=== PATIENT | male | born 1990 | race Caucasian/White ===

== ENCOUNTER 2018-11-20 19:51 | Emergency (ER) | payer MEDICAID ==
[~2018-11-20] VITALS: Ht 182.9 cm; Wt 117.9 kg
[2018-11-20 20:01] VITALS: BP_SYST 156
[2018-11-20 22:30] VITALS: BP_SYST 149
== END 2018-11-20 22:30 | disposition home or self-care (01) ==
LOC: SED 19:51
DX: S61.012A Laceration without foreign body of left thumb without damage to nail, initial encounter (principal); R03.0 Elevated blood-pressure reading, without diagnosis of hypertension; W26.8XXA Contact with other sharp object(s), not elsewhere classified, initial encounter; Y93.89 Activity, other specified; Y92.89 Other specified places as the place of occurrence of the external cause; Y99.8 Other external cause status
CPT/HCPCS: 99283

== ENCOUNTER 2018-12-17 20:55 | Emergency (ER) | payer MEDICAID ==
[~2018-12-17] VITALS: Ht 182.9 cm; Wt 117.9 kg
[2018-12-17 21:00] VITALS: BP_SYST 149
--- NOTE | 2018-12-17 21:00 | NUR ---
Patient to ER bed 7 for evaluation.
--- NOTE | 2018-12-17 21:00 | NUR ---
Patient to ER via triage for evaluation of laceration of left elbow, after he jumped off a pier earlier today. Patient is awake, alert and oriented in no acute distress, vital signs stable, respirations even and unlabored, skin warm and dry to touch. Patient reportedly closed his wound with crazy glue prior to arrival. No active bleeding noted. Patient able to ambulate to bed 7 with slow, steady gait with family at his side. Awaiting evaluation by ER MD, will continue to observe and assess.
--- NOTE | 2018-12-17 22:00 | NUR ---
Patient resting quietly in no acute distress, awaiting evaluation by ER MD, will continue to observe and assess.
--- NOTE | 2018-12-17 22:10 | NUR ---
ER at bedside examining patient.
[2018-12-17] MEDS ORDERED: DIPH-TET-PERTUS Vaccine 0.5 ML VIAL (ADACEL) I.M. ONE (22:30)
[2018-12-17 23:22] VITALS: BP_SYST 141
--- NOTE | 2018-12-17 23:22 | NUR ---
Patient given written and verbal discharge instructions and verbalizes understanding. ER MD discussed with patient the results and treatment provided. Patient in stable condition. ID arm band removed. Rx of Keflex given. Patient educated on pain management and to follow up with PMD. Pain Scale 0. Opportunity for questions provided and answered. Medication side effect fact sheet provided.
== END 2018-12-17 23:22 | disposition home or self-care (01) ==
LOC: SED 20:55
DX: S51.812A Laceration without foreign body of left forearm, initial encounter (principal); X58.XXXA Exposure to other specified factors, initial encounter; Y93.39 Activity, other involving climbing, rappelling and jumping off; Y92.89 Other specified places as the place of occurrence of the external cause; Y99.8 Other external cause status
CPT/HCPCS: 73090; 90715; 99283

== ENCOUNTER 2019-01-01 10:02 | Emergency (ER) | payer MEDICAID ==
[~2019-01-01] VITALS: Ht 182.9 cm; Wt 122.5 kg
--- NOTE | 2019-01-01 10:05 | NUR ---
Patient to ER bed 4 to gown for evaluation. Side rails up. Report given to Fam LEWIS.
[2019-01-01 10:06] VITALS: BP_SYST 143
--- NOTE | 2019-01-01 10:10 | NUR ---
PT complained that he has been coughing for the last 2 days and wanted to make sure he was doing okay. PT O2 saturated at 98% RA. PT is not presenting any signs of acute distress.
--- NOTE | 2019-01-01 10:15 | NUR ---
ER at bedside examining patient.
[2019-01-01] MEDS ORDERED: ALBUTEROL SULFATE 0.083% 2.5 MG/3 ML VIAL.NEB IH ONE (10:30)
[2019-01-01] MEDS ORDERED: methylPREDNISolone SOD SUCC/PF 62.5 MG/ML VIAL IVP ONE (10:30)
[2019-01-01] MEDS ORDERED: IPRATROPIUM BROM 0.5 MG/2.5 ML VIAL.NEB (ATROVENT) IH ONE (10:30)
[2019-01-01] MEDS ORDERED: methylPREDNISolone SOD SUCC/PF 62.5 MG/ML VIAL IM ONE (11:15)
--- NOTE | 2019-01-01 11:30 | NUR ---
Patient given written and verbal discharge instructions and verbalizes understanding. ER MD discussed with patient the results and treatment provided. Patient in stable condition. ID arm band removed. Rx of Robitussin, Zithromaz, Prednisone given. Patient educated on pain management and to follow up with PMD. Pain Scale 0/10. Opportunity for questions provided and answered. Medication side effect fact sheet provided.
== END 2019-01-01 11:30 | disposition home or self-care (01) ==
LOC: SED 10:02
DX: J20.9 Acute bronchitis, unspecified (principal); F17.200 Nicotine dependence, unspecified, uncomplicated
CPT/HCPCS: 71045; 94640; 96374; 99283; J2930; J7613

== ENCOUNTER 2019-03-05 07:45 | Emergency (ER) | payer BC, MEDICAID ==
[~2019-03-05] VITALS: Ht 182.9 cm; Wt 122.5 kg
[2019-03-05 07:50] VITALS: BP_SYST 142
[2019-03-05] MEDS ORDERED: MORPHINE 2 MG/ML INJ. SYRINGE IM ONE (08:30)
[2019-03-05 09:00] VITALS: BP_SYST 142
== END 2019-03-05 09:00 | disposition home or self-care (01) ==
LOC: SED 07:45
DX: S93.491A Sprain of other ligament of right ankle, initial encounter (principal); X50.9XXA Other and unspecified overexertion or strenuous movements or postures, initial encounter; Y93.89 Activity, other specified; Y92.89 Other specified places as the place of occurrence of the external cause; Y99.8 Other external cause status
CPT/HCPCS: 73610; 96372; 99283; J2270

== ENCOUNTER 2019-05-12 14:53 | Emergency (ER) | payer BC, MEDICAID ==
[~2019-05-12] VITALS: Ht 182.9 cm; Wt 117.9 kg
[2019-05-12 15:05] VITALS: BP_SYST 168
[2019-05-12 15:43] VITALS: BP_SYST 168
== END 2019-05-12 15:42 | disposition home or self-care (01) ==
LOC: SED 14:53
DX: S39.011A Strain of muscle, fascia and tendon of abdomen, initial encounter (principal); R03.0 Elevated blood-pressure reading, without diagnosis of hypertension; R22.2 Localized swelling, mass and lump, trunk; W39.XXXA Discharge of firework, initial encounter; Y93.89 Activity, other specified; Y92.69 Other specified industrial and construction area as the place of occurrence of the external cause; Y99.8 Other external cause status
CPT/HCPCS: 99283